=== PATIENT | male | born 1980 | race Two or more races ===

== ENCOUNTER 2024-04-19 05:09 | Emergency (ER) | payer OTHER ==
[~2024-04-19] VITALS: Ht 177.8 cm; Wt 89.4 kg
[2024-04-19] MEDS ORDERED: KETOROLAC TROMETHAMINE 60 MG VIAL IM STA (06:25)
[2024-04-19] MEDS ORDERED: KETOROLAC TROMETHAMINE 60 MG VIAL IM ONE (06:32)
== END 2024-04-19 09:30 | disposition home or self-care (01) ==
LOC: ER 05:10
DX: S40.011A Contusion of right shoulder, initial encounter (principal); S42.001A Fracture of unspecified part of right clavicle, initial encounter for closed fracture; W19.XXXA Unspecified fall, initial encounter; Y93.55 Activity, bike riding; Y92.89 Other specified places as the place of occurrence of the external cause; Y99.8 Other external cause status